=== PATIENT | male | born 1960 | race Caucasian/White ===

== ENCOUNTER 2024-12-20 01:19 | Day surgery (SDC) | payer OTHER, SELFPAY ==
[2024-10-25 11:02] VITALS: BMI 24.7
[2024-12-13 10:28] VITALS: BMI 24.5
--- OUTSIDE RECORDS SUMMARY | 2024-12-20 01:22 | XMS_ITS | Encounter Summary ---
Author Organization [facility] Address [address] [place] [address] Care Team Providers Care Client Service Executive Name Role Phone Jose Nava MD Primary Care Provider + [phone] Encounter Details Date Type Department Care Team (Late st Contact Info) Description 09/01/2020 Prep for Procedure [facility] Pre-Admission Testing [place], [place] [id number] Uriah Barnett MD [address] [place] [id number] Social History Tobacco Use Types Packs/Day Years Used Date Smoking Tobacco: Never Smokeless Tobacco: Never Alcohol Use Standard Drinks/Week Comments Yes 5 (1 standard drink = 0.6 oz pur e alcohol) Sex and Gender Information Value Date Recorded Sex Assigned at Not on file Legal Sex Male 7:04 PM CDT Gender Identity Not on file Sexual Orientation Not on file COVID-19 Exposure Response Date Recorded In the last month, have you been in contact with someone who was confirmed or suspected to have Coronavirus / COVID-19? No / Unsure 09/01/2020 11:08 AM BEHAVIORAL TECHNICIAN documented as of this encounter Plan of Treatment Not on file documented as of this encounter Results * PRE-SURGICAL/PRE-PROCEDURE CORONAVIRUS (COVID 19) (08/30/2020 9:04 AM BEHAVIORAL TECHNICIAN) CORONAVIRUS SARS COV 2 PCR (RESP) NOT DETECTED NOT DETECTED 08/31/2020 1:41 PM BEHAVIORAL TECHNICIAN [facility] Comment: A Not Detected (negative) test result for this test means that SARS- CoV-2 RNA was not present in the specimen above the limit of detection. A negative result does not rule out the possibility of COVID-19 and should not be used as the sole basis for treatment or patient management decisions. If COVID-19 is still suspected, based on exposure history together with other clinical findings, re-testing should be considered in consultation with public health authorities. Laboratory test results should always be considered in the context of clinical observations and epidemiological data in making a final diagnosis and patient management decisions. Please review the Fact Sheets and FDA authorized labeling available for health care providers and patients using the following websites: https://www.[employer].Muzicall/home/Covid-19/HCP/NAAT/fact-sheet2 https://www.[employer].Muzicall/home/Covid-19/Patients/NAAT/ fact-sheet2 This test has been authorized by the FDA under an Emergency Use Authorization (EUA) for use by authorized laboratories. Due to the current public health emergency, [facility] is receiving a high volume of samples from a wide variety of swabs and media for COVID-19 testing. In order to serve patients during this public health crisis, samples from appropriate clinical sources are being tested. Negative test results derived from specimens received in non-commercially manufactured viral collection and transport media, or in media and sample collection kits not yet authorized by FDA for COVID-19 testing should be cautiously evaluated and the patient potentially subjected to extra precautions such as additional clinical monitoring, including collection of an additional specimen. Methodology: Nucleic Acid Amplification Test (NAAT) includes RT-PCR or TMA Additional information about COVID-19 can be found at the [facility] website: www.ThoughtLeadr.Muzicall/Covid19. Test performed at [facility] [place] [address] [place] [address] Director: VIKRAM MEJIA DO,MPH FIRST TEST YES 08/30/2020 12:53 PM [facility] EMPLOYED IN HEALTHCARE NO 08/30/2020 12:53 PM [facility] SYMPTOMATIC DEFINED BY CDC NO 08/30/2020 12:53 PM BEHAVIORAL TECHNICIAN [facility] DATE OF SYMPTOM ONSET NO 08/30/2020 1:01 PM BEHAVIORAL TECHNICIAN [facility] HOSPITALIZATION STATUS NO 08/30/2020 12:53 PM BEHAVIORAL TECHNICIAN [facility] PATIENT IN ICU NO 08/30/2020 12:53 PM BEHAVIORAL TECHNICIAN [facility] RESIDENT OF CONGREGATE CARE NO 08/30/2020 12:53 PM BEHAVIORAL TECHNICIAN [facility] NOT 08/30/2020 1:01 PM BEHAVIORAL TECHNICIAN [facility] PATIENT'S RACE WHITE OR 08/30/2020 12:53 PM BEHAVIORAL TECHNICIAN [facility] ETHNICITY NONHISPANIC 08/30/2020 12:53 PM BEHAVIORAL TECHNICIAN [facility] SOURCE (QST) NASOPHARYNGEAL SWAB 08/30/2020 12:53 PM BEHAVIORAL TECHNICIAN [facility] NASOPHARYNGEAL SWAB / Unknown 08/30/2020 9:04 AM BEHAVIORAL TECHNICIAN us Uriah Barnett MD MICROBIOLOGY - GENERAL OR DERABLES Final Result Performing Organization Address City/State/[facility] Co de Phone Number [facility] [address] [place] [address], [place] [phone] [place] [address], documented in this encounter Visit Diagnoses Diagnosis Preoperative testing- Primary Preoperative examination, unspecified documented in this encounter Care Teams Client Service Executive Relationship Specialty Start Date End Date Jose Nava MD [address] [place] [address] PCP - General FAMILY PRACTICE 09/01/20 documented as of this encounter
--- OUTSIDE RECORDS SUMMARY | 2024-12-20 01:22 | XMS_ITS | Referral Summary ---
Author Organization [address] Address [address] [place] [phone] Care Team Providers Care Global Regulatory Lead Name Role Phone Jose Nava MD Primary Care Provid er Allergies No known active allergies Medications No known medications Active Problems Problem Noted Date Diagnosed Date Allergic rhinitis 03/17/2018 Immunizations Immunization Administration Dates Next Due Tdap 01/23/2019 Social History Tobacco Use Types Packs/Day Years Used Date Smoking Tobacco: Never Smokeless Tobacco: Never Personal Safety Answer Date Recorded Getting School Help Needed Not on file 12/16 Sex and Gender Information Value Date Recorded Sex Assigned at Not on file 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 Gender Identity Not on file Sexual Orientation Not on file Last Filed Vital Signs Vital Sign Reading Time Taken Comments Blood Pressure 120/80 07/21/2020 2:05 PM CDT Pulse 46 07/21/2020 2:05 PM CDT Temperature 36.3 C (97.4 F) 07/21/2020 2:05 PM CDT Respiratory Rate 16 07/21/2020 2:05 PM CDT Oxygen Saturation 96% 07/21/2020 2:05 PM CDT Inhaled Oxygen Concentration - - Weight 82.6 kg (182 lb) 07/21/2020 2:05 PM CDT Height 185.4 cm (6' 1 ) 07/21/2020 2:05 PM CDT Body Mass Index 24.01 07/21/2020 2:05 PM CDT Plan of Treatment Not on file Insurance [employer] CHO[employer] Care Teams Global Regulatory Lead Relationship Specialty Start Date End Date Jose Nava MD [address] [place] [address] PCP - General Family Medicine 07/21/20
--- OUTSIDE RECORDS SUMMARY | 2024-12-20 01:22 | XMS_ITS | Clinical Summary ---
Author Organization [facility] Address [facility] access hospital[address] [place] [address] Care Team Providers Care Street Light Inspector Name Role Phone Jose Nava MD Primary Care Provider + [phone] Allergies No known active allergies Medications Cholecalciferol (VITAMIN D) 50 MCG (1999) Tab Take 1 tablet by mouth daily. Active NON FORMULARY Take 1 tablet by mouth daily as needed (leg cramps). Cramp defense (supplement because he runs) Active HYDROcodone-yayo taminophen 5-325 MG tabletIndicatio ns:Acute Pain < 7 Day Supply Take 1-2 tablets by mouth every 6 (six) hours as needed for Pain. Indications: Acute Pain < 7 Day Supply For Moderate Pain 20 tablet 09/01/2020 Active Family History Medical History Relation Comments No Known Problems Brother No Known Problems Daughter Dementia Father Hypertension Father Dementia Mother Hypertension Mother No Known Problems Sister No Known Problems Son Relation Status Comments Brother Alive Daughter Alive Father Mother Sister Alive Son Alive Social History Tobacco Use Types Packs/Day Years [...] Sign Reading Time Taken Comments Blood Pressure 117/76 09/01/2020 4:39 PM GANTRY RIGGER Pulse 50 09/01/2020 4:39 PM GANTRY RIGGER Temperature 36.2 C (97.1 F) 09/01/2020 4:39 PM GANTRY RIGGER Respiratory Rate 16 09/01/2020 4:39 PM GANTRY RIGGER Oxygen Saturation 98% 09/01/2020 4:39 PM GANTRY RIGGER Inhaled Oxygen Concentration - - Weight 82.6 kg (182 lb) 08/25/2020 11:30 AM GANTRY RIGGER Height 185.4 cm (6' 1 ) 08/25/2020 11:30 AM GANTRY RIGGER Body Mass Index 24.01 08/25/2020 11:30 AM GANTRY RIGGER Plan of Treatment Health Maintenance Due Date Last Done Comments Colorectal Cancer Screening Colonoscopy (10 Years) 1958 Hepatitis C 1976 Zoster Vaccines (1 of 2) 2008 Pneumococcal Vaccine: 65+ Ye ars (1 of 1 - PCV) 2023 COVID-19 Vaccine ( - 2023-2 5 season) 2024 Influenza Adult (#1) 2024 DTaP, Tdap and Td Vaccines ( 2 - Td or Tdap) 01/23/2029 01/23/2019 RSV Immunization or 60+ Years (1 - 1-dose 75+ series) 2033 Meningococcal B Vaccine Aged Out No l onger eligible based on patient's age to complete this topic Meningococcal Vaccine Aged Out No libby daria eligible based on patient's age to complete this topic RSV Immunizations Under 20 Months Aged Out No longer eligible based on patient's age to complete this topic Medical Devices Implanted Type Area Fluoroscope Operator Device Identifier Shelf Expiration Date Model / Serial / Lot Bard 3d Max Mid Anatomical Mesh Implanted:Qty: 1 on 09/01/2020 by Uriah Barnett MD at [facility] Right: Inguinal 05/30/2022 [id number] / / [id number] Insurance [facility] Care Teams Street Light Inspector Relationship Specialty Start Date End Date Jose Nava MD [address] [place], [place] [id number] PCP - General FAMILY PRACTICE 09/01/20
--- OUTSIDE RECORDS SUMMARY | 2024-12-20 01:22 | XMS_ITS | Encounter Summary ---
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 us Historical Provider Final Res ult documented in this encounter Visit Diagnoses Not on filedocumented in this encounter Care Teams Etl Database Developer Relationship Specialty Start Date End Date Jose Nava MD [address] [place] [address] PCP - General Family Medicine 07/21/20 documented as of this encounter
--- OUTSIDE RECORDS SUMMARY | 2024-12-20 01:22 | XMS_ITS | Clinical Summary ---
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
--- OUTSIDE RECORDS SUMMARY | 2024-12-20 01:22 | XMS_ITS | Clinical Summary ---
Author Organization [facility] Address [address] [place] [address] Care Team Providers Care Nurse Supervisor Name Role Phone Unavailable Primary Care Provider Unavailabl e Source Comments [facility],non-owned Affiliates and Associated Physician Practices is amultiple site organization consisting of ambulatory clinics and hospital sitesin [place], [place], [place] and [place]. This disclosure is being madepursuant to the Care Everywhere program and may not contain all information available regarding this patient. Last updated 18.[facility] Allergies No known active allergies Immunizations Name Administration Dates Next Due TDAP (7yrs+) 01/23/2019 Social History Tobacco Use Types Packs/Day Years Used Date Smoking Tobacco: Never Assessed Sex and Gender Information Value Date Recorded Sex Assigned at Not on file Gender Identity Not on file Sexual Orientation Not on file Last Filed Vital Signs Vital Sign Reading Time Taken Comments Blood Pressure 140/78 02/14/2017 2:25 PM CDT Pulse 60 02/14/2017 2:25 PM CDT Temperature - - Respiratory Rate 16 02/14/2017 2:25 PM CDT Oxygen Saturation - - Inhaled Oxygen Concentration - - Weight 85 kg (187 lb 8 oz) 02/14/2017 2:25 PM CD T Height 185.4 cm (6' 1 ) 11/11/2015 2:00 PM EFFERVESCENT SALTS COMPOUNDER Body Mass Index 24.74 11/11/2015 2:00 PM EFFERVESCENT SALTS COMPOUNDER Plan of Treatment Health Maintenance Due Date Last Done Comments COLOGUARD (AGES 45-75) - COL ON CA SCREENING 1960 COLON MONITORING 1958 COLONOSCOPY - COLON CA SCREENING 1958 CT COLONOGRAPHY - COLON CA SCREENING 1960 Colorectal Cancer Screening 1958 FIT - COLON CA SCREENING 1958 FLEX SIG - COLON CA SCREENING 1958 HIV SCREENING 1973 HEPATITIS C SCREENING 10/31/1976 PNEUMOCOCCAL VACCINE 50+ (1 of 1 - PCV) 2008 ZOSTER VACCINE (1 of 2) 2008 LIPID TESTING 07/31/2020 07/31/2015, 07/22/2014 COVID-19 VACCINE ( - 2023-2 5 season) 2024 INFLUENZA VACCINE (#1) 2024 DEPRESSION SCREENING 10/03/2024 DTAP/TDAP/TD VACCINES (2 - T d or Tdap) 01/23/2029 01/23/2019 Respiratory Syncytial Virus (RSV) Vaccine Pt: or over 60 yrs (1 - 1-dose 75+ series) 2033 HEPATITIS B VACCINE Aged Out No longe r eligible based on patient's age to complete this topic HIB VACCINE Aged Out No longer eligi ble based on patient's age to complete this topic HPV VACCINE Aged Out No longer eligi ble based on patient's age to complete this topic MENINGOCOCCAL (Group B) VACCINE SHARED DECISION-MAKING Aged Out No longer eligible based on patient's age to complete this topic MENINGOCOCCAL GROUPS A/C/Y/W VACCINE Aged Out No longer eligible b ased on patient's age to complete this topic Procedures Procedure Name Priority Date/Time Associated Diagnosis Comments LIPID PROFILE Routine 07/31/2015 4:20 PM CDT from Last 3 Months or Most Recently Relevant to Health Maintenance Results * (ABNORMAL) LIPID PROFILE (07/31/2015 4:20 PM CDT) Cholesterol Total 198 <200 mg/dL [facility] HDL 58 >40 mg/dL [facility] Comment: ATP III Classification of HDL Cholesterol: <40 mg/dL: Considered a major risk factor. >60 mg/dL: Considered a negative risk factor. LDL Calculated 126(H) <100 mg/dL [facility] Comment: ATP III Classification of LDL Cholesterol: <100 mg/dL: Optimal 100 - 129 mg/dL: Near Optimal/Above Optimal 130 - 159 mg/dL: Borderline High 160 - 189 mg/dL: High >190 mg/dL: Very High Triglycerides 70 <150 mg/dL [facility] Comment: ATP III Classification of Triglycerides: <150 mg/dL: Normal 150 - 199 mg/dL: Borderline High 200 - 400 mg/dL: High >500 mg/dL: Very High Blood specimen (specimen) BLOOD SPECIMEN / Unknown 07/31/2015 4:20 PM CDT 08/07/2015 4:20 PM EFFERVESCENT SALTS COMPOUNDER Historical Provider LAB - CHEMISTRY O RDERAGUI Performing Organization Address City/State/[facility] Co de Phone Number [facility] [address] [phone] from Last 3 Months or Most Recently Relevant to Health [place] [address]
[2024-12-20 09:53] VITALS: BP 126/72; PULSE 50; RESP 18; TEMP 36.2; O2SAT 100
--- NOTE | 2024-12-20 10:00 | WPDANESEPPF ---
Anes - Initial Pre Proc Eval Procedure: Operation Date: 12/20/24 11:00 Proposed Procedures p Screening Colonoscopy - Erick Egan MD Date/Time: 12/20/24 10:00 Surgeon: Erick Egan MD Pre Op Diagnosis: hx of colon polyps Patient Data Age: 64 Gender: M Height: 1.83 m Weight: 78.2 kg Last Vital Signs Temp 36.2 C L 12/20/24 09:53 Pulse 50 L 12/20/24 09:53 Resp 18 12/20/24 09:53 BP 126/72 12/20/24 09:53 Pulse Ox 100 12/20/24 09:53 O2 Del Method Room Air 12/20/24 09:53 Allergies Allergy/AdvReac Type Severity Reaction Status Date / Time No Known Allergies Allergy Verified 12/20/24 09:52 Home Medications ?Medication ?Instructions ?Recorded ?Confirmed ?Type No Home Medications 10/25/24 12/13/24 History Patient hx anesthesia problems: none Family hx anesthesia problems: none Results Review: All pre-operative results and documents have been reviewed as part of the pre-operative evaluation. [facility] Social History Social History Smoking status: Never smoker Substance use type: does not use Living arrangements: with family Spiritual care concerns: No Anes - Eval Final PreProcedure Day of Procedure 12/20/24 10:00 Patient weight: normal Heart: regular rate and rhythm Lungs: clear to auscultation Airway: Mallampati scale class II Neurological: alert and oriented Last oral intake: >/= 8 hours ASA classification: I Emergent: no Anesthetic plan: proceed Anesthesia type and monitoring: general GIVS and standard monitoring Results Review: All pre-operative results and documents have been reviewed as part of the pre-operative evaluation. Informed Consent: The patient's anesthetic plan and its attendant risks and benefits were discussed with the patient/family/POA. Questions were solicited and answers provided to the satisfaction of the patient/family/POA.
[2024-12-20] MEDS: LACTATED RINGERS 1,000 ML 150 ML IV CONT (10:05)
--- NOTE | 2024-12-20 10:37 | PM.HPGS ---
History of Present Illness History of Present Illness Consent: Risks, benefits, and alternatives have been discussed and questions answered. Patient agrees to proceed with procedure. Chief complaint: screening colon Narrative: Angel Carrillo is a 64 year old male here for screening colonoscopy, last one about 10 years ago Review of Systems Review of Systems: All systems reviewed & are unremarkable except as noted in HPI and below PMFSH Past Medical History Medical History (Updated 12/20/24 @ 10:38 by Erick Egan MD) Colon cancer screening Social History Social History Smoking status: Never smoker Substance use type: does not use Living arrangements: with family Spiritual care concerns: No Meds Home Medications and Allergies Home Medications ?Medication ?Instructions ?Recorded ?Confirmed ?Type No Home Medications 10/25/24 12/13/24 History Allergies Allergy/AdvReac Type Severity Reaction Status Date / Time No Known Allergies Allergy Verified 12/20/24 09:52 Vital Signs Vital Signs - 24 hr 12/20/24 09:53 Temperature 97.1 F L Pulse Rate 50 L Respiratory Rate 18 Blood Pressure 126/72 Pulse Oximetry 100 Oxygen Delivery Room Air Exam Const: General: comfortable and no acute distress HENMT: Face/Nose/Sinus: Normal nares present Eyes: General: appearance normal, both eyes and all related structures Neck: Neck: no JVD Resp: Auscultation: clear to auscultation bilaterally Cardio: Rate: regular rate Rhythm: regular rhythm GI: Inspection: non-distended GI Palp: Yes Soft to palpation Skin: General skin exam: normal color Neuro: Speech: normal speech Extrem: General: normal to inspection Psych: Mental Status: mental status grossly normal Assessment and Plan Assessment and plan (1) Colon cancer screening: Code(s): Z12.11 - Encounter for screening for malignant neoplasm of colon Status: Acute Assessment and Plan: colonoscopy
[2024-12-20 10:55] VITALS: BP 99/66; PULSE 48; RESP 13; O2SAT 98
[2024-12-20 11:05] VITALS: BP 102/67; PULSE 45; RESP 16; O2SAT 99
[2024-12-20 11:15] VITALS: BP 115/78; PULSE 48; RESP 19; O2SAT 100
== END 2024-12-20 11:29 | disposition home or self-care (01) ==
PROVIDERS: PCP Physician Assistant; Referring Provider Physician Assistant; Visit Provider Internal Medicine Gastroenterology
PROC: 0DJD8ZZ Inspection of Lower Intestinal Tract, Via Natural or Artificial Opening Endoscopic (ICD-10-PCS; CPT 45378; principal; 2024-12-20 11:00)
DX: Z12.11 Encounter for screening for malignant neoplasm of colon (principal); K63.5 Polyp of colon; K64.8 Other hemorrhoids
CPT/HCPCS: 45385; 88305; J1596; J2003; J2704; J7120